=== PATIENT | female | born 1980 | race Caucasian/White ===

== ENCOUNTER 2018-07-02 16:08 | Inpatient (IN) | payer OTHER ==
[~2018-07-02] VITALS: Ht 165.1 cm; Wt 93.0 kg
[2018-07-02] MEDS ORDERED: CITA20 PO (16:29)
[2018-07-02] MEDS ORDERED: IBUP800 PO (16:29)
[2018-07-02 18:50] LABS: BASOPHILS ABSOLUTE AUTO 0.09 K/mm3 (0.00-0.23); BASOPHILS PERCENT AUTO 1 % (0-2); EOSINOPHILS ABSOLUTE AUTO 0.05 K/mm3 (0.00-0.68); EOSINOPHILS PERCENT AUTO 1 % (0-6); Hematocrit 37.7 % (33.0-51.0); Hemoglobin 12.6 g/dL (11.5-16.0); IMMATURE GRAN ABSOLUTE AUTO 0.03 K/mm3 (0.00-0.10); IMMATURE GRAN PERCENT AUTO 0 % (0-1); LYMPHOCYTES ABSOLUTE AUTO 0.97 K/mm3 (0.84-5.20); LYMPHOCYTES PERCENT AUTO 9 % (21-46); MONOCYTES ABSOLUTE AUTO 0.51 K/mm3 (0.16-1.47); MONOCYTES PERCENT AUTO 5 % (4-13); Mean Corpuscular HGB 29.9 pg (26.0-34.0); Mean Corpuscular HGB Conc 33.4 g/dL (31.5-36.5); Mean Corpuscular Volume 89 fL (80-100); Mean Platelet Volume 10.2 fL (9.1-12.4); NEUTROPHILS ABSOLUTE AUTO 9.23 K/mm3 (1.96-9.15); NEUTROPHILS PERCENT AUTO 85 % (41-73); Platelet Count 256 K/mm3 (150-400); RDW Coefficient Variation 12.2 % (11.7-14.2); RDW Standard Deviation 40.5 fL (35.1-46.3); Red Blood Cell Count 4.22 M/mm3 (3.80-5.20); White Blood Cell Count 10.88 K/mm3 (4.00-11.30)
[2018-07-02 19:17] LABS: Alanine Aminotransfer (ALT/SGP 74 U/L (12-78); Albumin, Blood 3.6 g/dL (3.4-5.0); Albumin/Globulin Ratio 1.2 (0.8-1.8); Alk Phos 68 U/L (50-136); Anion Gap 5 mmol/L (6-16); Aspartate Aminotrans (AST/SGOT 36 U/L (12-37); Bilirubin, Total 0.3 mg/dL (0.1-1.0); Blood Urea Nitrogen 15 mg/dL (8-24); Bun/Creatinine Ratio 25.7 (12.0-20.0); CO2, Blood 25 mmol/L (21-32); Calcium, Blood 8.6 mg/dL (8.5-10.1); Chloride, Blood 112 mmol/L (98-108); Creatinine, Blood 0.58 mg/dL (0.40-1.00); Globulin, Blood 3.1 g/dL (2.2-4.0); Glomerular Filtration Rate >60 (60-); Glucose, Blood 104 mg/dL (70-99); Potassium, Blood 4.3 mmol/L (3.5-5.5); Sodium, Blood 142 mmol/L (136-145); Total Protein, Blood 6.7 g/dL (6.4-8.2)
--- NOTE | 2018-07-02 22:41 | NUR ---
PT ARRIVED TO ICU 09 FROM OR WITH RN AND DR RANGEL. PT C/O NAUSEA. VERBAL ORDER PER DR RANGEL FOR ZOFRAN RECEIVED. PT AWAKE A&O. C/O PAIN 6/10 TO LEFT ARM. MED WITH ZOFRAN AND FENTANYL 25 MCQ. LUNGS CLEAR ON ROOMAIR. SPO2 96% HEART RATE REGULAR. LEFT ARM WITH LORNE WRAP AND SPLINT. DRSG CD&I. PT ABLE TO MOVE FINGER WITH BRISK CAP REFILL. REPORTS NUMBNESS TO LITTLE FINGER. BT+. IV 20G TO RIGHT AC AND RIGHT HAND. LR AT TKO.
--- NOTE | 2018-07-02 23:25 | NUR ---
PT C/O TO LEFT ARM INCREASING EVEN WITH RECEIVING FENTANYL 25 MCQ EVERY 5 MIN FOR TOTAL OF [address] DELAROSA AT BEDSIDE. VERBAL ORDER FOR DILAUDID AND TORADOL RECEIVED.
--- NOTE | 2018-07-03 00:30 | NUR ---
POST OP NEW PT FROM ER TO OR FOR OPEN RADIUS/ULNA FX. PT ARRIVED TO ROOM S/P I&D AND ORIF OF RADIUS AND ULNA. PT ALERT AND ABLE TO STAND AND AMBULATE TO BATHROOM AND BACK TO BED. LEFT UE IN SPLINTED/LORNE WRAP IN SLING. DRESSING IS DRY/INTACT NO DRAINAGE NOTED. ABLE TO WIGGLE FINGERS DOES HAVE N/T TO PINKY FINGER. VSS PT MEDICATED FOR PAIN, CALLED RT FOR CONT PULSE OX.
--- NOTE | 2018-07-03 01:48 | NUR ---
PT DOZING OFF/ON. CONT PULSE OX IN PLACE. VSS AFEBRILE. TETANUS HAS BEEN GIVEN. ICE PACK IN PLACE. STATES PAIN IS TOLERABLE. DID GET A LITTLE NAUSEATED AFTER NORCOGREGORYFRAN GIVEN. PT HAS BEEN EATING CRACKERS AND DRINKING SPRITE. CALL LIGHT IN REACH.
--- NOTE | 2018-07-03 05:13 | NUR ---
POD 1 S/P L ORIF RADIAL/ULNA. HAS DONE WELL SINCE ARRIVAL TO UNIT. PAIN IS MANAGED WITH IV DILAUDID. ABLE TO WIGGLE FINGERS, SOME N/T TO LEFT PINKY FINGER, BRISK CAP REFIL. DRESSING/SPLINT CDI AND ELEVATED WITH SLING IN PLACE. PT HAS BEEN AMBULATED WELL, VOIDING AND TOLERATING PO.
--- NOTE | 2018-07-03 18:37 | NUR ---
PT HAS BEEN STABLE THIS SHIFT. PT PAIN CONTROLLED WITH PRN MEDS. CONT IV ABX, WILL STAY ON THEM FOR 48 HOURS. SPLINT CDI WITH LORNE WRAP AND SLING. PT HAS NUMBNESS TO LATERAL PINKY ON LEFT HAND. ENCOURAGING ROM IN FINGERS. PT UP INDEP IN ROOM. EATING AND DRINKING WELL. BOWEL CARE GIVEN TO PREVENT CONSTIPATION. SCRIPTS TO CHART FOR DC TOMORROW EVENING.
--- NOTE | 2018-07-03 18:55 | NUR ---
RECVD BEDSIDE REPORT FROM PREVIOUS SHIFT RN CHELO, PT A/0 X 4, PLEASANT/COOPERATIVE, SITTING UP IN BED, STATES PAIN CONTROLLED AT THIS TIME PER MAR, BED IN LOWEST POSITION, BED RAILS UP X 2, CALL LIGHT WITHIN REACH, FAN AT BEDSIDE
--- NOTE | 2018-07-03 23:31 | NUR ---
pt states she is stiff. provided nsaids per mar and offered ice. pt declined icepak and did accept an extra pillow for elevation
--- NOTE | 2018-07-04 06:23 | NUR ---
shift summary: vss, no acute changes, pt independed in room. pt remained a/0 x 4, pleasant/cooperative, tolerated PO intake with no n/v. pt received IV abx per mar. pt reported pain at 6-7/10, medicated per mar with decrease in pain to 4-5/10 L arm. pt declines IV narcotic pain medication per mar, says she would like to only have PO narcotics per mar. this RN provided analgesia per mar. pt able to fall asleep upon nurse rounding.
--- NOTE | 2018-07-04 19:08 | NUR ---
PT HAS BEEN STABLE THIS SHIFT. PAIN MEDICATION CHANGED TO PERCOCET, MORE EFFECTIVE. TAKING IBUPROFEN INTERMITTENTLY. PT UP INDEP IN ROOM. SHOWER THIS AM. PT EATING AND DRINKING WELL. BM TODAY AFTER BOWEL CARE. DRESSING CHANGED THIS EVENING PER DR CORONADO. PLAN FOR DC HOME TOMORROW AM. SCRIPTS GIVEN TO SPOUSE.
--- NOTE | 2018-07-05 04:00 | NUR ---
SHIFT SUMMARY PT A&O X4 T/O SHIFT. POD#3 ORIF L RADIUS AND ULNA; DRESSING CDI; LUE ELEVATED T/O SHIFT. PT STS N/T TO L SMALL FINGER STABLE T/O SHIFT. PAIN MANGED PER EMAR. PT DENIES SOB, CP AND NAUSEA. INDEPENDENT IN ROOM. CALL LIGHT IN REACH; PT DEMONSTRATES USE. WCTM UNTIL REPORT TO DAY SHIFT RN.
[2018-07-05] MEDS ORDERED: LEVFLO500 PO (07:57)
[2018-07-05] MEDS ORDERED: Percocet 5-3251 EACH PO (07:57)
--- NOTE | 2018-07-05 09:52 | NUR ---
DC'D HOME, DC INSTRUCTIONS GIVEN, VERBALIZED UNDERSTANDING.
== END 2018-07-05 09:15 | disposition home or self-care (01) | DRG 512 ==
LOC: ER 16:08 → SURS 20:05
PROVIDERS: Emergency Medicine; ADMIT Orthopaedic Surgery
PROC: 0PSJ04Z Reposition Left Radius with Internal Fixation Device, Open Approach (ICD-10-PCS; principal; 2018-07-02 18:15)
PROC: 0PSL04Z Reposition Left Ulna with Internal Fixation Device, Open Approach (ICD-10-PCS; 2018-07-02 18:15)
DX: S52.92XB Unspecified fracture of left forearm, initial encounter for open fracture type I or II (principal); V80.010A Animal-rider injured by fall from or being thrown from horse in noncollision accident, initial encounter; Y93.52 Activity, horseback riding; Y92.39 Other specified sports and athletic area as the place of occurrence of the external cause; S52.202B Unspecified fracture of shaft of left ulna, initial encounter for open fracture type I or II; Z98.82 Breast implant status; S52.502B Unspecified fracture of the lower end of left radius, initial encounter for open fracture type I or II
CPT/HCPCS: 73090; 80053; 85025; 90714; 93005; 93010; 94762; 96365; 96366; 96368; 96375; 99284-25; C1713; J0690; J1100; J1170; J1885; J1956; J2405; J3010; J7030